=== PATIENT | male | born 1965 | race Caucasian/White ===

== ENCOUNTER 2020-09-04 13:40 | Emergency (ER) | payer OTHER, SELFPAY ==
[2020-09-04] VITALS (12 sets, daily range): BP systolic 137–160; BP diastolic 85–115; PULSE 63–77; RESP 13–19; TEMP 36.2; O2SAT 98–100
--- NOTE | ~2020-09-04 | XR_ITS ---
EXAMINATION: XR chest 2V EXAM DATE: 09/04/2020 15:54 INDICATION: Palpitations X4-5 days, SOB, HX: HTN . TECHNIQUE: Frontal and lateral projections of the chest obtained and reviewed. Comparison is made to prior examination from 10/20/2015. FINDINGS: The lungs are clear. There are no pleural effusions. The cardiomediastinal silhouette is within normal limits. There is no pneumothorax suspected. Mild thoracic scoliosis and diffuse idiop athic skeletal hyperostosis. Chronic calcification right upper paratracheal region. IMPRESSION: No acute cardiopulmonary findings. Reviewed, dictated and finalized at location A.
--- NOTE | 2020-09-04 14:52 | ECG_ITS ---
Measurements Intervals [place] Rate: 75 P: -3 UT: 142 QRS: -7 QRSD: 109 T: 15 QT: 375 QTc: 421 Interpretive Statements SINUS RHYTHM POSSIBLE LEFT VENTRICULAR HYPERTROPHY MINIMAL Q WAVES- HIGH LATERAL LEADS BORDERLINE T WAVE ABNORMALITY- INFERIOR LEADS BORDERLINE ECG Electronically Signed On 09-04-2020 15:23:50 CDT by Macr Ojeda D.O.
[2020-09-04 15:09] LABS: Basophils Absolute Auto 0.1 K/mm3 (0.0-0.1); Basophils Percent Auto 0.6 % (0.2-1.2); Eosinophils Absolute Auto 0.2 K/mm3 (0-0.3); Eosinophils Percent Auto 2.3 % (0-4.4); Hematocrit 44.8 % (42.0-52.0); Hemoglobin 14.7 g/dL (14.0-18.0); Immature Granulocyte Absolute 0.03 K/mm3 (0.00-0.031); Immature Granulocyte Percent A 0.3 % (0-0.5); Lymphocytes Absolute Auto 2.41 K/mm3 (0.9-3.2); Lymphocytes Percent Auto 28.1 % (18.3-44.2); Mean Corpuscular HGB Conc 32.8 g/dl (32-36); Mean Corpuscular Hemoglobin 31.4 pg (26-34); Mean Corpuscular Volume 95.7 fl (80-100); Mean Platelet Volume 8.9 fl (7.4-10.4); Monocytes Absolute Auto 0.8 K/mm3 (0.1-0.6); Monocytes Percent Auto 8.8 % (2.6-8.5); Neutrophils Absolute Auto 5.1 K/mm3 (1.3-6.7); Neutrophils Percent Auto 59.9 % (45.5-73.1); Platelet Count Result 277 k/mm3 (150-375); Red Blood Count 4.68 M/mm3 (4.6-6.20); Red Cell Distribution Width 12.3 % (11.5-14.5); White Blood Count 8.6 K/mm3 (4.5-10.0)
[2020-09-04 15:19] LABS: Anion Gap 5 mmol/L (8-16); Blood Urea Nitrogen 16 mg/dL (9-20); Calcium 9.3 mg/dL (8.4-10.2); Carbon Dioxide 27 mmol/L (22-30); Chloride 106 mmol/L (98-107); Estimated CRCL calculation 132 ml/min; Estimated Glomerular Filt Rate > 60; Glucose 97 mg/dL (75-110); INR 0.9; Partial Thromboplastin Time 29.5 SECONDS (22.3-36.8); Potassium 4.4 mmol/L (3.4-5.0); Prothrombin Time 13.2 Seconds (11.1-14.7); Sodium 138 mmol/L (137-145)
[2020-09-04 15:31] LABS: Troponin I < 0.012 ng/mL (0.000-0.034)
--- NOTE | 2020-09-04 19:09 | ED.ARRPALP ---
HPI - Arrhythmia/Palpitations General Chief Complaint: Arrhythmia/Palpitations Stated Complaint: irregular heartbeat Time Seen by Provider: 09/04/20 17:25 Source: patient Mode of arrival: ambulatory Limitations: no limitations History of Present Illness HPI narrative: 55-year-old with a history of hypertension here with complaints of intermittent palpitations since this morning. Patient states that he had some yesterday as well. He denies being lightheaded or dizzy. No history of chest pain. Complains of moderate chest discomfort when he is having palpitations. Patient states that he had similar episode few years ago was on Holter monitor which was unremarkable. Patient states that his primary doctor at [facility] and he increase the dosage of lisinopril to 40 mg daily. Patient denies any other complaints. MD complaint: palpitations Onset (ago): day(s) (1) Duration: intermittent Severity: moderate Associated symptoms: denies other symptoms Related Data Allergies Allergy/AdvReac Type Severity Reaction Status Date / Time No Known Allergies Allergy Unverified 02/08/16 12:43 Review of Systems Review of Systems: All systems reviewed & are unremarkable except as noted in HPI and below Constitutional: Constitutional: Reports no additional constitutional complaints Eyes: Eyes: Reports no additional eye complaints ENT: Reports system reviewed and no additional complaints, except as documented Cardiovascular: Cardiovascular: Reports as per HPI Respiratory: Respiratory: Reports no additional respiratory complaints Gastrointestinal: Gastrointestinal: Reports no additional gastrointestinal complaints Musculoskeletal: Musculoskeletal: Reports no additional musculoskeletal complaints Neurologic: Reports system reviewed and no additional complaints, except as documented PMFSH Family History Family History Mother Family history of obesity Depression Patient's mother is Acute myocardial infarction Sibling Depression Family history of chronic obstructive pulmonary disease Father Hypertension Family history of diabetes mellitus in first degree relative Other Cerebrovascular accident Family history of arthritis Family history of cardiovascular disease Family history of congenital heart disease Family history of malignant neoplasm Family history of rheumatoid arthritis Social History Social History Smoking status: Never smoker Alcohol intake: current Gender identity (if verbalized by the patient): Male Exam Narrative: Exam Narrative: GENERAL: Well-appearing, well-nourished, and in no acute distress. HEAD: Normocephalic, atraumatic. EYES: PERRLA and EOMI. NECK: Supple. CHEST: Clear to auscultation. No respiratory distress. HEART: Regular rate and rhythm. No murmur heard. Normal peripheral pulses. ABDOMEN: Soft, nontender, nondistended, normal active bowel sounds. EXTREMITIES: Normal range of motion. No edema. SKIN: Warm, dry, no rash. NEURO: No focal deficits. Alert and oriented x3. PSYCH: Normal mood and affect. Course Course Emergency Course: Patient remained in normal sinus rhythm with occasional PVC. I discussed labs and EKG findings with the patient. His blood pressure is been on the 145/95. We will start him on Toprol-XL 12.5 mg I have also recommended him to follow-up with his primary doctor in the next few days. He does feel comfortable going home. Vital Signs Vital signs: Vital Signs Temperature 36.2 C L 09/04/20 14:49 Pulse Rate 77 09/04/20 14:49 Respiratory Rate 18 09/04/20 14:49 Blood Pressure 160/115 H 09/04/20 14:49 Pulse Oximetry 99 09/04/20 14:49 Temperature 36.2 C L 09/04/20 14:49 Pulse Rate 72 09/04/20 17:33 Respiratory Rate 15 09/04/20 17:33 Blood Pressure 138/85 09/04/20 17:33 Pulse Oximetry 99 09/04/20 17:35 MDM - Arrhythmia/Palpita
== END 2020-09-04 19:42 | disposition home or self-care (01) ==
PROVIDERS: Emergency Medicine; Emergency Provider Family Medicine; PCP Internal Medicine
DX: R00.2 Palpitations (principal); I10 Essential (primary) hypertension; R94.31 Abnormal electrocardiogram [ECG] [EKG]
CPT/HCPCS: 36415; 71046; 80048; 84484; 85025; 85610; 85730; 93005; 99284

== ENCOUNTER 2020-10-26 15:30 | Outpatient (RCR) | payer OTHER, SELFPAY ==
--- NOTE | 2020-09-28 09:56 | PTOPEVAL ---
PHYSICAL THERAPY EVALUATION AND PLAN OF CARE Thank you for referring Danny Tamayo to [facility].? The patient is scheduled to be seen for therapy?2x/week for 4-6 weeks. Please review, sign, date and return this plan of care NIURKA. I agree with and certify that the following plan of care is medically necessary. Referring Physician Date Evaluation Outpatient Past Medical History Cardiovascular History Hx Hypertension Yes: managed Hx Other Cardiac Disorders Yes: fluttering now under control Musculoskeletal History Hx Joint Replacement Yes: bilateral JUNIOR in 2015 Diagnosis left achilles tendon pain; calcaneal bursitis Onset several years Subjective Information States that he has had a bump Query Text:As Reported By Patient/ on his left achilles tendon Family for several years and when he is walking and up alot, there is a significant amount of pain in the left heel. 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 He has been wearing a hard boot for 3 months. Wearing the boot helps to prevent increases of pain. Has had both hips replaced in 2015. States that because of the way he walks, his knees are starting to hurt. Also states that he is having difficulty with the left hip, which has been happening since the surgery and is now worsening. Self Report Pain Assessment Left Ankle(s) Reported Pain Level 0 Pain Description Aching,Sharp,Throbbing Pain Frequency Chronic,Intermittent Lowest Pain Intensity 0 Greatest Pain Intensity 7 Pain Aggravating Factors Walking,Weight Bearing/ Standing Pain Behaviors Guarding Pain Score Pain Score 0: Self Report Interventions Used Interventions Used By Clinicians Exercise Lower Extremity Range of Motion Ankle/Foot Range of Motion Right Ankle Dorsiflexion With Knee Flexed 1 Range of Motion - Active Ankle Plantarflexion Range of Motion - 59 Active Query Text: Ankle Eversion Range of Motion - Active 15 Ankle Inversion Range of Motion - Active 41 Left
--- NOTE | 2020-10-26 16:00 | PTOPEVAL ---
PHYSICAL THERAPY DISCHARGE NOTE Thank you for referring Danny Tamayo to [facility]. Please review, sign, date and return this discharge summary NIURKA. I agree with and certify that the following plan of care is medically necessary. Referring Physician Date Diagnosis left achilles tendon pain; calcaneal bursitis Onset several years Subjective Information States that he does not notice Query Text:As Reported By Patient/ any different in his symptoms Family . States that whenever he moves he has pain and that he is not sure physical therapy is the answer for him. States that he does not feel as though he gained much strength from therapy or got much benefit. He has a follow -up appointment with his doctor and is going to pursue another intervention. Self Report Pain Assessment Left Ankle(s) Reported Pain Level 3 Pain Description Aching,Sharp,Throbbing Pain Aggravating Factors Walking,Weight Bearing/ Standing Pain Behaviors Guarding Pain Score Pain Score 3: Self Report Additional Pain Score Comments throbbing; can go up and down Interventions Used Interventions Used By Clinicians Exercise,Manual Therapy Techniques,Ultrasound Lower Extremity Range of Motion Ankle/Foot Range of Motion Right Ankle Dorsiflexion With Knee Flexed 10 Range of Motion - Active Ankle Plantarflexion Range of Motion - 60 Active Query Text: Ankle Eversion Range of Motion - Active 15 Ankle Inversion Range of Motion - Active 41 Left Ankle Dorsiflexion With Knee Flexed 10 Range of Motion - Active Ankle Plantarflexion Range of Motion - 60 Active Query Text: Ankle Eversion Range of Motion - Active 13 Ankle Inversion Range of Motion - Active 22 Lower Extremity Muscle Strength Testing Hip Strength Right Hip Flexion Strength 5 Normal Hip Extension Strength 3+ Fair + Hip Abduction Strength 4 Good Left Hip Flexion Strength 4+ Good + (improved from 3+/5) Hip Extension Strength 4 Good (improved from 3-/5) Hip Abduction Strength 4 Good (improved from 3-/5) Knee Strength Bilateral Knee Flexion Strength 5 Normal Knee Extension Strength 5 Normal Ankle Strength Left Ankle Dorsiflexion Strength 5 Normal (improved from 4+/5) Ankle Eversion Strength
== END 2020-10-27 10:04 | disposition home or self-care (01) ==
LOC: ANHPT 15:30
DX: M79.672 Pain in left foot (principal); M77.52 Other enthesopathy of left foot and ankle; M76.62 Achilles tendinitis, left leg
CPT/HCPCS: 97014; 97035; 97110; 97140; 97161; G0283

== ENCOUNTER 2021-04-26 16:36 | Outpatient (CLI) | payer OTHER, SELFPAY ==
[2021-04-26 18:18] LABS: SARS-CoV-2 RNA PCR Positive (Negative)
== END 2021-04-26 16:37 | disposition home or self-care (01) ==
LOC: CHSLAB 16:39
DX: U07.1 COVID-19 (principal)
CPT/HCPCS: C9803; U0003; U0005

== ENCOUNTER 2021-05-11 07:10 | Emergency (ER) | payer OTHER, SELFPAY ==
--- NOTE | ~2021-05-11 | CT_ITS ---
EXAMINATION: CT lumbar spine wo [facility] EXAM DATE: 05/11/2021 08:37 INDICATION: Sciatica extreme low back pain, very limited ROM, no inj, no surg . TECHNIQUE: Spiral CT of the lumbar spine was performed without contrast. Axial, coronal and sagittal images lumbar spine were reviewed. The dose-length product (DLP) for this examination was 1287.84 m Gy-cm. The exposure was tailored according to patient size (auto mA exposure control), and iterativ e reconstruction (ASIR) was used as additional dose reduction technique. There is no prior study for comparison. FINDINGS: T12 and L1 vertebral bodies and the facet joints are fused. There is mild to moderate disc disease throughout the lumbar spine. The vertebral bodies are aligned in the AP dimension. Vertebral body heights are maintained. Several small bone islands. Mild levoscoliosis. No endplate erosive quesada ge. No spondylolysis or acute fracture. Sacroiliac joints demonstrate moderate osteoarthritis, and pa rtial fusion on the left. Bilateral hip replacements. Level by level evaluation: T12-L1: This level is fused. Facet arthropathy: Fused. Neural foraminal stenosis: Moderate to severe right, mild to moderate left. Central canal stenosis: No stenosis. L1-L2: There is a mild diffuse disc bulge. Facet arthropathy: Moderate. Neural foraminal stenosis: Mild to moderate right, mild left. Central canal stenosis: Mild. L2-L3: There is a mild to moderate diffuse disc bulge. Facet arthropathy: Moderate. Neural foraminal stenosis: Mild to moderate bilateral. Central canal stenosis: Mild to moderate. L3-L4: There is a mild to moderate diffuse disc bulge. Facet arthropathy: Moderate. Neural foraminal stenosis: Moderate left, mild right. Central canal stenosis: Mild to moderate. L4-L5: There is a mild to moderate diffuse disc bulge asymmetric to the left Facet arthropathy: Moderate to severe. Neural foraminal stenosis: Mild to moderate bilateral, left more than right. Central canal stenosis: Mild . L5-S1: There is a mild diffuse disc bulge asymmetric to the right Facet arthropathy: Moderate to severe. Neural foraminal stenosis: Moderate right, mild to moderate left. Central canal stenosis: Mild. IMPRESSION: 1. Mild to moderate lumbar disc disease, moderate to severe lower lumbar arthropathy. 2. Fused T12-L1 vertebral bodies, possibly congenital. 3. No acute findings. Reviewed, dictated and finalized at location A. L CANS SUPERVISOR IMPRESSION: 1. Mild to moderate lumbar disc disease, moderate to severe lower lumbar arthr opathy. 2. Fused T12-L1 vertebral bodies, possibly congenital. 3. No acute findings.
[2021-05-11 07:10] VITALS: BP 160/95; PULSE 77; RESP 20; TEMP 36.4; O2SAT 98
[2021-05-11] MEDS: KETOROLAC (*BKC) 60 MG/2 ML VIAL IM (07:58)
--- NOTE | 2021-05-11 08:05 | PC.NURSE ---
Pt provided a urinal at this time. Pt states he is having to much pain to move to urinate at this time. RN states we will monitor pain improvement and attempt.
[2021-05-11] MEDS: ONDANSETRON HCL ODT 4 MG TABLET PO (09:07)
[2021-05-11] MEDS: MORPHINE SULFATE (*CRX) 2 MG/ML INJ IV PUSH (09:07)
[2021-05-11 09:13] LABS: Add Urine Microscopic? NO; Appearance Urine Clear (Clear); Bilirubin Urine Negative (Negative); Blood Urine Negative (Negative); Color Urine Light Yellow (Yellow); Glucose Urine UA Negative (Negative); Ketones Urine Negative (Negative); Leukocyte Esterase Ur Negative (Negative); Nitrate Urine Negative (Negative); Protein Urine Negative (Negative); Specific Grav Ur 1.025 (1.010-1.020); Urobilinogen Urine 0.2 mg/dL (0.2-1.0)
--- NOTE | 2021-05-11 09:15 | ED.BACK ---
HPI - Back Pain/Injury General Chief Complaint: Back Pain/Injury Stated Complaint: ambulance Time Seen by Provider: 05/11/21 07:12 Source: patient, EMS and RN notes reviewed Mode of arrival: EMS Limitations: no limitations History of Present Illness MD elicited complaint: back pain Pertinent past history: prior back pain Onset (ago): day(s) (2) Timing: constant Severity: moderate Pain scale (0-10): 8 Similar Symptoms Previously: Yes Quality: dull, aching and spasming Location: lumbar spine Radiation: none Exacerbating factors: movement Relieving factors: none Context: turning/twisting and bending Associated symptoms: denies other symptoms Work related injury: No Related Data Home Medications Medication Instructions Recorded Confirmed fluticasone propionate 1 spray INTRANASAL DAILY 05/11/21 05/11/21 ibuprofen 600 mg PO PRN PRN 05/11/21 05/11/21 lisinopril 40 mg PO HS 05/11/21 05/11/21 tamsulosin 0.4 mg PO HS 05/11/21 05/11/21 Allergies Allergy/AdvReac Type Severity Reaction Status Date / Time No Known Allergies Allergy Verified 05/11/21 07:22 Review of Systems Review of Systems: All systems reviewed & are unremarkable except as noted in HPI and below Musculoskeletal: Musculoskeletal: Reports back pain PMFSH Past Medical History Medical History (Updated 05/11/21 @ 09:31 by Vandana Jones MD) Sciatica Family History Family History Mother Family history of obesity Depression Patient's mother is Acute myocardial infarction Sibling Depression Family history of chronic obstructive pulmonary disease Father Hypertension Family history of diabetes mellitus in first degree relative Other Cerebrovascular accident Family history of arthritis Family history of cardiovascular disease Family history of congenital heart disease Family history of malignant neoplasm Family history of rheumatoid arthritis Social History Social History Smoking status: Never smoker Alcohol intake: current Gender identity (if verbalized by the patient): Male Exam Const: General: no acute distress and alert Nutritional Appearance: well nourished Orientation/consciousness: patient oriented x3 HENMT: Head: normal to inspection Ears: external ears normal and TM's normal bilaterally General nose exam: Normal external nose present and Normal nares present Face and sinus: normal facial exam Mouth: Yes lip normal and Yes moist mucous membranes Teeth and gingiva: dentition normal Eyes: Conjunctivae: conjunctivae normal Pupils: Equal, round and reactive pupils present EOM: EOMs intact bilaterally Neck: Neck: normal visual inspection and no lymphadenopathy Chest: Chest palpation & inspection: normal inspection of the chest Resp: Effort & Inspection: normal respiratory effort Auscultation: clear to auscultation bilaterally Cardio: Rate: regular rate Rhythm: regular rhythm GI: GI Palp: Yes Soft to palpation and Yes Tenderness to palpation present (GI) Auscultation: normal bowel sounds : General: Yes no CVA tenderness Male General Exam: Yes normal external exam Testes: Testes normal Back/Spine/Pelvis: Back: no CVA tenderness Skin: General skin exam: normal color Neuro: General: patient oriented x3, moves all extremities, no meningeal signs, no focal motor deficits and CN's II-XI intact bilaterally Extrem: General: normal to inspection and no pedal edema Psych: Appearance: grossly normal and well kempt Mental Status: mental status grossly normal Affect: normal affect Attitude: cooperative Thought content: Yes Normal thought content present Course Course Emergency Course: Pt was less painful in the ED. VSS. Reevaluation(s) Reevaluation #1: Pt had less back pain. Date: 05/11/21 Time: 08:05 Vital Signs Vital signs: Vital Signs Temperature 36.4 C
[2021-05-11 09:47] VITALS: BP 178/88; PULSE 71; RESP 16; O2SAT 97
--- NOTE | 2021-05-11 10:10 | PC.NURSE ---
[id number] spoke with PT who states they will be down to assess pt after while. RN informed pt. Pt called sister who states she will come pick him up .
--- NOTE | 2021-05-11 10:38 | PC.NURSE ---
Called Physical Therapy states they will not see pt till noon.
[2021-05-11] MEDS: methylPREDNISolone SOD SUCC 125 MG VIAL IV PUSH (10:48)
--- NOTE | 2021-05-11 10:58 | PC.NURSE ---
PT given a steroid and ice pack to help with back pain. Pt aware PT was evaluate around noon.
--- NOTE | 2021-05-11 11:10 | PC.NURSE ---
PT in with pt at this time.
[2021-05-11 11:14] VITALS: BP 148/84; PULSE 87; RESP 16; O2SAT 96
--- NOTE | 2021-05-11 12:00 | PCPTNOTE ---
No Care Plan initiated due to patient being discharged today. He would do well to be referred to PCP/editorial specialist. He would also benefit from skilled outpatient PT for back pain.
== END 2021-05-11 11:27 | disposition home or self-care (01) ==
PROVIDERS: Emergency Provider Emergency Medicine
DX: M54.16 Radiculopathy, lumbar region (principal)
CPT/HCPCS: 72131; 81003; 96372; 96374; 96375; 97161; 99283; 99284; A9270; J1885; J2270; J2930

== ENCOUNTER 2021-10-31 16:54 | Outpatient (RCR) | payer OTHER, SELFPAY ==
--- NOTE | 2021-10-31 17:43 | PTOPEVAL ---
Thank you for referring Danny Tamayo to [facility].? The patient is scheduled to be seen for therapy? __2__x/week for 10 visits. Please review, sign, date and return this plan of care NIURKA. I agree with and certify that the following plan of care is medically necessary. Referring Physician Date Admitting Provider: Attending Provider: Paulette MAN Referring Provider: *PT Outpatient Evaluation Start: 10/31/21 16:54 Freq: Status: Active Protocol: Document 10/31/21 17:00 ALETHA (Rec: 10/31/21 17:39 ALETHA [id number]) Therapy Assessment Status Assessment Status Assessment Status Evaluation Outpatient Past Medical History Cardiovascular History Hx Hypertension Yes: managed Hx Other Cardiac Disorders Yes: fluttering now under control Respiratory History Hx Bronchitis Yes Musculoskeletal History Hx Joint Replacement Yes: bilateral JUNIOR in 2014 Evaluation Information Problem Diagnosis s/p left ankle srugery Onset 07/26/21 Subjective Information Pt.r eprots that he underwent Query Text:As Reported By Patient/ ankle surgery on 07/26/21. Pt Family reports that following surgery he was non weight bearing for 6 weeks. Pt. reports that he was limited WB in the boot after 6 weeks and discharged the boot 3 weeks ago. He states that he still has burning in the area of the left heel. He states that pain is most notable with trying to push off the left foot. He state that he is still weak with described ankle PF. He reports that his goal is to improve strength, decrease pain and to be able to walk normally. Prior Level of Function Activity Level (Last 3 Months) Occupation unemployed Hand Dominance Right Activity of Daily Living Ability Independent Indoor/Home Mobility Independent Community Mobility Independent Stairs Ability Independent Functional Cognition (Planning, Shopping Independent , Taking Medications) Cooking Yes Cleaning Yes Laundry Yes Shopping Yes Driving Yes Pain Assessment Timing of Pain Assessment Timing of Pain Assessment
== END 2021-12-04 13:48 | disposition home or self-care (01) ==
LOC: CHSPT 16:54
DX: M76.62 Achilles tendinitis, left leg (principal)
CPT/HCPCS: 97014; 97110; 97112; 97140; 97161; G0283

== ENCOUNTER 2022-06-15 13:44 | Outpatient (CLI) | payer OTHER, SELFPAY ==
--- NOTE | ~2022-06-15 | XR_ITS ---
EXAM: XR thoracic spine 3V DATE: 06/15/2022 14:26 HISTORY: chronic pinched pain to midback/right side no known injury . COMPARISON: X-ray chest 10/20/2015. FINDINGS: Mild scoliosis. Vertebral body alignment intact. Vertebral body heights preserved. Multile liliana mild disc space narrowing and moderate osteophytosis. Flowing ossification of the anterior longit udinal ligament. No traumatic malalignment or fracture. Visualized lung parenchyma is clear. IMPRESSION: Multilevel degenerative disc disease. DISH. Reviewed, dictated and finalized at location K. ICAL RESEARCH ANALYST
--- NOTE | ~2022-06-15 | XR_ITS ---
EXAM: XR cervical spine 4-5V DATE: 06/15/2022 14:25 HISTORY: chronic neck pain w numbness/pinched feeling more to L side . COMPARISON: None available. FINDINGS: Craniocervical association and atlantoaxial joint are aligned. No prevertebral soft tissue swelling. Vertebral bodies are aligned. Vertebral body heights are maintained. Multilevel mild disc space narrowing, mild uncovertebral joint hypertrophy, and moderate marginal osteophytosis, including large bridging anterior osteophytes. Multilevel facet sclerosis. 5.3 cm, calcified right thyroid lob e nodule. IMPRESSION: Multilevel degenerative disc disease. Multilevel facet arthropathy. Large calcified right thyroid lobe nodule, recommend thyroid ultrasound for further characterization. Reviewed, dictated and finalized at location K. [employer]ATION [employer]NER[employer]IPS IMPRESSION: Multilevel degenerative disc disease. Multilevel facet arthropathy. Large calcified right thyroid lobe nodule, recommend thyroid ultrasound for fu rther characterization.
== END 2022-06-15 13:45 | disposition home or self-care (01) ==
LOC: CHSIMG 13:47
PROVIDERS: PCP Family Medicine; Visit Provider Family Medicine
DX: M54.12 Radiculopathy, cervical region (principal); M54.6 Pain in thoracic spine; M48.14 Ankylosing hyperostosis [Forestier], thoracic region; M50.30 Other cervical disc degeneration, unspecified cervical region; E04.1 Nontoxic single thyroid nodule
CPT/HCPCS: 72050; 72072

== ENCOUNTER 2022-06-19 09:46 | Outpatient (CLI) | payer OTHER, SELFPAY ==
--- NOTE | ~2022-06-19 | US_ITS ---
US thyroid INDICATION: Thyroid calcifications. TECHNIQUE: Real-time sonographic images of the thyroid gland were obtained. COMPARISON: X-ray dated 06/15/2022 FINDINGS: The right thyroid lobe measures 5.7 x 1.9 x 1.4 cm. The left thyroid lobe measures 4.4 x 1 .5 x 1.6 cm. There is a large calcified mass in the right lobe measuring 4.6 x 3.9 x 1.8 cm. This mas s is wider than tall, very hypoechoic, solid, ill-defined margins with macrocalcifications, TR 4. The re is normal echotexture and echogenicity throughout the thyroid gland. No discrete nodules identifie d. Normal vascular flow is present. IMPRESSION: 1. Complex calcified right thyroid mass measuring up to 4.6 cm, TR 4. Ultrasound-guided biopsy recom mended. Reviewed, dictated and finalized at location B. DER OPERATOR TOOL IMPRESSION: 1. Complex calcified right thyroid mass measuring up to 4.6 cm, TR 4. Ultrasou nd-guided biopsy recommended.
== END 2022-06-19 09:47 | disposition home or self-care (01) ==
PROVIDERS: PCP Family Medicine; Visit Provider Family Medicine
DX: E04.9 Nontoxic goiter, unspecified (principal)
CPT/HCPCS: 76536

== ENCOUNTER 2022-08-05 09:45 | Outpatient (RCR) | payer OTHER, SELFPAY ==
--- NOTE | 2022-07-02 11:57 | PTOPEVAL1 ---
Assessment and note entered by Emeterio London, PT, DPT Evaluation Information Assessment Status Evaluation Diagnosis neck pain Onset chronic - 4-5 years Subjective Information Pt states he has a pinched nerve in his neck with reported numbness in the clavicular region on the L side. He states he always has at least a mild pain but it fluctuates. Pt is a high school foreign language tutor. Pt states he like to hike and fish but has not done this since a hip replacement since 2015. Reported Pain Level Pain Score 2: Self Report Assessment PT Clinical Summary Danny Waldron presents to therapy today for his initial evaluation with a diagnosis of neck pain. Today he demonstrates decreased active and passive cervical ROM in all directions that is limited by pain. He has intermittent altered sensations in his shoulders and hands. He demonstrates a poor forward head posture with an increased thoracic kyphosis. Skilled physical therapy services are indicated to address the deficits noted above, to improve mobility, to manage symptoms, and to limit pain. Plan of Care Interventions Electrical Stimulation,Hot Pack/Cold Pack,Manual Therapy,Mechanical Traction,Neuro Re-education, Patient/Caregiver Educati,Therapeutic Activities, Therapeutic Exercise PT Services Indicated Yes Treatment Frequency and 2x/ wk for 4 wks Duration These treatments will address the objective and functional deficits as defined above. The patient will be advanced safely and appropriately in order for the patient to progress towards his/her prior level of function. Additional exercises will be introduced and as well as a comprehensive home exercise program upon discharge, if needed, ?to ensure carryover of functional gains achieved in the clinic. This treatment plan has been reviewed and agreement upon by the patient.
--- NOTE | 2022-07-05 10:31 | PCPTNOTE ---
Pt cancelled this morning due to car trouble.
--- NOTE | 2022-07-29 10:28 | PCPTNOTE ---
Patient did not show up for scheduled appointment this date. Called and left voicemail for pt to reschedule if needed. If we do not hear from him in a week he will be discharged.
--- NOTE | 2022-08-05 10:10 | PTOPDC ---
Assessment and note entered by Emeterio London, PT, DPT Evaluation Information Assessment Status Progress Diagnosis neck pain Onset chronic - 4-5 years Subjective Information Pt states he feels like he can move a little better. He states his impingement symptoms are about the same intensity edmonds but maybe have decreased a little bit in frequency. He states he still cannot predict which motions will cause his pain. Reported Pain Level Pain Score 3: Self Report Assessment PT Clinical Summary Danny presents to therapy today for his progress report following 8 visits of skilled therapy to treat his neck pain with radiculopathy. Today he reports no improvement in radicular symptoms overall, he does states short term improvements in symptoms after treatments without lasting effects . He demonstrates no improved in his cervical ROM. He reports good compliance with his HEP but has not met any of his therapy goals. He will be discharged at this time with instructions to follow up with his referring provider regarding next steps in his POC. Plan of Care PT Services Indicated No
== END 2022-08-05 14:54 | disposition home or self-care (01) ==
LOC: ANHGOSHPT 09:45
PROVIDERS: PCP Family Medicine; Visit Provider Family Medicine
DX: M54.9 Dorsalgia, unspecified (principal); M54.2 Cervicalgia
CPT/HCPCS: 97012; 97110; 97112; 97140; 97161; 97530

== ENCOUNTER 2022-08-21 10:03 | Outpatient (CLI) | payer OTHER, SELFPAY ==
--- NOTE | ~2022-08-21 | US_ITS ---
EXAMINATION: US FNA w image guidance DATE: 08/21/2022 11:04 INDICATION: Right thyroid mass TECHNIQUE: A time-out was performed to verify the patient's name, date of , and procedure to be performed . The procedure and its benefits and risks were discussed with the patient. Risks specifically discus sed included bleeding and infection. The patient understood the risks and agreed to proceed. The neck was prepped and draped in the usual sterile manner. 3 mL 1% lidocaine was used for local anesthesia . 6 passes were made with a 25G needle into the lesion. Appropriate needle location was documented with continuous sonographic guidance. A sterile bandage was applied. There were no immediate compli cations. FINDINGS: Grayscale ultrasound images demonstrate biopsy needles advanced into a 4.6 x 2.5 x 3.3 cm right thyro id mass with lobular margins. The majority of the mass is obscured by dense shadowing coarse calcific ations peripherally about the majority of the mass. Much of the mass was inaccessible due to the intr aparenchymal surrounding calcification. There is a small solid hypoechoic region of the mass along it s cephalad margin which was not covered by calcification which was targeted for 4 of the biopsies. IMPRESSION: 1. Successful ultrasound-guided fine needle aspiration of a 4.6 cm TI RADS 5 right thyroid mass. Reviewed, dictated and finalized at location A. IMPRESSION: 1. Successful ultrasound-guided fine needle aspiration of a 4.6 cm TI RADS 5 r ight thyroid mass.
== END 2022-08-21 10:04 | disposition home or self-care (01) ==
PROVIDERS: PCP Family Medicine; Visit Provider Family Medicine
DX: E07.9 Disorder of thyroid, unspecified (principal)
CPT/HCPCS: 10005; 88173; 88305

== ENCOUNTER 2022-09-14 06:46 | Outpatient (CLI) | payer OTHER, SELFPAY ==
--- NOTE | ~2022-09-14 | MR_ITS ---
EXAMINATION: MR cervical spine wo con DATE: 09/14/2022 07:40 INDICATION: Chronic neck pain. TECHNIQUE: Magnetic resonance imaging (MRI) of the cervical spine was performed without intravenous c ontrast. Sequences included sagittal T2-weighted FSE, sagittal T2-weighted FS FSE, sagittal T1-weight ed FSE, axial MERGE, and axial T2-weighted FSE. COMPARISON: Cervical spine radiographs 06/15/2022 FINDINGS: Bone alignment is normal. Vertebral body heights are normal. There is mildly decreased disc height at C5-C6. The spinal cord signal intensity is normal. The following disc levels are specifica lly discussed: C2-C3: The disc does not extend beyond the endplate margin. There is moderate right uncovertebral charo nt osteoarthritis. There is moderate right and mild left facet joint osteoarthritis. There is moderat e right neural foraminal stenosis. There is no central canal stenosis. C3-C4: There is a central protrusion. There is moderate bilateral uncovertebral joint osteoarthritis. There is severe bilateral facet joint osteoarthritis. There is severe bilateral neural foraminal mark nosis. There is mild central canal stenosis. C4-C5: There is a central extrusion. There is mild bilateral uncovertebral joint osteoarthritis. Ther e is moderate bilateral facet joint osteoarthritis. There is moderate right and mild left neural fora lolis stenosis. There is mild central canal stenosis. C5-C6: There is a left central extrusion. There is no uncovertebral joint osteoarthritis. There is mi ld left facet joint osteoarthritis. There is ankylosis of right facet joint with mild hypertrophy. Th ere is no neural foraminal stenosis. There is mild central canal stenosis. C6-C7: The disc is bulging. There is mild right and severe left uncovertebral joint osteoarthritis. T here is mild lateral facet joint osteoarthritis. There is mild right and severe left neural foraminal stenosis. There is mild central canal stenosis. C7-T1: The disc does not extend beyond the endplate margin. There is no uncovertebral joint osteoarth ritis. There is mild bilateral facet joint osteoarthritis. There is no neural foraminal stenosis. The re is no central canal stenosis. IMPRESSION: 1. Moderate cervical spondylosis. Reviewed, dictated and finalized at location A.
== END 2022-09-14 06:47 | disposition home or self-care (01) ==
LOC: CHSIMG 06:47
PROVIDERS: PCP Family Medicine; Visit Provider Family Medicine
DX: M54.2 Cervicalgia (principal); M43.02 Spondylolysis, cervical region
CPT/HCPCS: 72141

== ENCOUNTER 2023-04-25 09:56 | Outpatient (CLI) | payer OTHER, SELFPAY ==
--- NOTE | ~2023-04-25 | XR_ITS ---
EXAMINATION: XR chest 2V DATE: 04/25/2023 10:12 INDICATION: Acute cough and congestion TECHNIQUE: PA and lateral views of the chest are obtained. COMPARISON: 09/04/2020 FINDINGS: The lungs are free of acute opacities. No pleural effusion or pneumothorax. The cardiomedia stinal silhouette is normal. There are bridging osteophytes at multiple levels in the spine, consiste nt with diffuse idiopathic skeletal hyperostosis (DISH). IMPRESSION: 1. No acute cardiopulmonary abnormality. Reviewed, dictated and finalized at location B. [employer]
== END 2023-04-25 09:57 | disposition home or self-care (01) ==
LOC: CHSIMG 09:58
PROVIDERS: PCP Family Medicine; Visit Provider Family Medicine
DX: R05.1 Acute cough (principal)
CPT/HCPCS: 71046